=== PATIENT | female | born 1970 | race African-American/Black ===

== ENCOUNTER 2018-06-21 09:59 | Day surgery (SDC) | payer OTHER ==
[~2018-06-21] VITALS: Ht 157.5 cm; Wt 113.6 kg
[2018-06-21 10:19] LABS: HEMATOCRIT 37.7 % (36.0-48.0); HEMOGLOBIN 12.6 g/dL (12-16); MCH 27.8 pg (26.0-34.0); MCHC 33.4 g/dL (31.0-37.0); MCV 83.2 fL (80.0-100.0); MEAN PLATELET VOLUME 9.3 fL (7.4-10.4); RBC 4.53 10x6/uL (4.00-5.40); RDW 14.8 % (11.5-14.5); WBC 3.8 10x3/uL (4.8-10.8)
[2018-06-21 10:44] VITALS: BP 125/69; Ht 157.5 cm; Wt 113.6 kg
--- NOTE | 2018-06-21 18:22 | NUR ---
PT GIVEN DC INSTRUCTIONS AT THIS TIME, PT VERBALIZES UNDERSTANDING. PT IV REMOVED AT THIS TIME, INTACT, NO REDNESS OR SWELLING AT SITE. PT LEAVING OPS AT THIS TIME.
== END 2018-06-21 18:17 | disposition home or self-care (01) ==
LOC: D.OPS 09:59
PROVIDERS: Anesthesiology
DX: R10.13 Epigastric pain (principal); K29.80 Duodenitis without bleeding; Z87.11 Personal history of peptic ulcer disease; R10.2 Pelvic and perineal pain; Z12.11 Encounter for screening for malignant neoplasm of colon